=== PATIENT | male | born 1975 | race Caucasian/White ===

== ENCOUNTER 2017-09-23 12:14 | Inpatient (IN) | payer MEDICAID, OTHER ==
[~2017-09-23] VITALS: Ht 190.5 cm; Wt 99.8 kg
[2017-10-07] MEDS ORDERED: ULTRAM50 MG PO (05:54)
[2017-10-07] MEDS ORDERED: AMITRIPTYLINE H25 MG PO (05:54)
[2017-10-07] MEDS ORDERED: TRAZODONE HCL50 MG PO (05:55)
[2017-10-07] MEDS ORDERED: NAPROXEN500 MG PO (05:55)
--- NOTE | 2017-10-07 07:02 | NUR ---
THIS RN TO BEDSIDE TO START TRANSEXAMIC ACID PER PT'S RN, BEVERLEY. TRANSEXAMIC ACID STARTED. INFUSING OVER 15 MINUTES. PT EXPRESSES ANXIETY OVER O2 MASK. PT WEANED TO ROOM AIR. O2 SATURATION MAINTAINS ABOVE 96% ON ROOM AIR. OFFICERS AT BEDISIDE. BED RAILS UP.
--- NOTE | 2017-10-07 09:50 | NUR ---
[facility] ORAL AIRWAY IN PLACE. OXYGEN AT 10L VIA O2 MASK WITH SATS 100%. 0944 ORAL AIRWAY REMOVED. PT REMOVED OXYGEN MASK AND WON'T LEAVE ON. O2 AT 6L WITH BB IN PLACE. TRANSPORT GUARDS AT BEDSIDE.
--- NOTE | 2017-10-07 10:42 | NUR ---
PT TO FLOOR VIA STRETCHER WITH KAY ROMANO. PT ASLEEP BUT WAKES TO NAME. STATES HE IS NOT FEELING WELL, NAUSEOUS. ATTACHED TO CONTINUOUS PULSE OX WITH SATS IN HIGH NINETIES.
--- NOTE | 2017-10-07 11:28 | NUR ---
VITALS AND MEDICATIONS DUE. THIS RN TO BEDSIDE. PT RESTING WITH EYES CLOSED, RR = 17 BPM. PT AROUSES TO VOICE AND THEN DRIFTS BACK TO SLEEP. VITALS TAKEN. MEDICATIONS GIVEN ORDERED (SEE MAR). ICE CHIPS PROVIDED. BED RAILS UP. CALL LIGHT WITHIN REACH. OFFICERS AT BEDSIDE.
--- NOTE | 2017-10-07 12:50 | NUR ---
VITALS DUE. THIS RN TO BEDSIDE. PT REQUESTS TO USE URINAL. PT ASSISTED UP TO SIDE OF BED, STANDING AT EDGE OF BED TO USE URINAL. ABLE TO VOID 500ML WITHOUT ISSUE. PT BACK TO BED. SCD'S AND PULSE OX ON. VITALS TAKEN. PT TOLERATING SIPS OF WATER. PT REQUESTS PUDDING. PROVIDED REQUESTED. NEW ICE TO ICE BAG. BED RAILS UP. CALL LIGHT WITHIN REACH. OFFICERS AT BEDSIDE.
--- NOTE | 2017-10-07 14:12 | NUR ---
medication due. this rn to bedside. pt reports 2/10 pain that is tolerable and denies nasuea. pt reports "feeling better" after his soup. medication given as ordered. bed rails up. call light with in reach. officers at bedside.
--- NOTE | 2017-10-07 15:13 | NUR ---
ADMINISTERED AB AND GAVE PT A GRANOLA BAR. PT STATES HE IS HAVING LITTLE PAIN AND IS STILL FAIRLY NUMB. DENIES NAUSEA AND IS QUITE HUNGRY DESPITE SEVERAL SNACKS.
--- NOTE | 2017-10-07 17:30 | NUR ---
AFTERNOON ASSESSMENT AND MEDICATIONS DUE. THIS RN TO BEDSIDE. ASSESSMENT DONE. EDUCATION DONE R/T BLOCK RESOLVEMENT. PT REPORTS 4/10 TOLERABLE PAIN. SEE MAR FOR MEDICATION GIVEN. PAIN MANAGMENT PLAN MADE WITH PT. PT AGREEABLE TO PLAN AND VERBALIZES UNDERSTANDING. PT TOELRATED DINNER W/O NAUSEA. GOOD INTAKE OF FLUIDS. PIV SALINE LOCKED PER ORDER. CALL LIGHT WITHIN REACH. OFFICERS AT BEDSIDE. BED RAILS UP.
--- NOTE | 2017-10-07 17:39 | NUR ---
MED REC COMPLETE
--- NOTE | 2017-10-07 18:06 | NUR ---
PT HERE FOR RIGHT TOTAL SHOULDER. DIET ADVANCED. MINIMAL PAIN AND NAUSEA. SCHEDULED PAIN MEDICATIONS GIVEN. VICODEN ORDERED FOR PRN PAIN MEDICATION IF NEEDED. MD ADVISES RN'S TO GIVE ZOFRAN WITH VIODEN PT HAS HX OF N/V WITH PAIN MEDICATIONS. NO VICODEN GIVEN THIS SHIFT. PT HAS BLOCK IN SHOULDER. HAND/ARM REMAIN NUMB. SLING AND ICE IN PLACE. PIV SALINE LOCKED. DRESSING CDI THIS SHIFT. OFFICERS AT BEDSIDE.
--- NOTE | 2017-10-07 18:57 | NUR ---
MEDICATION DUE. THIS RN TO BEDSIDE. PT REPORTS 6/10 PAIN THAT "IS A LOT WORSE." PT REQUESTS PAIN MEDICATION AT THIS TIME. ZOFRAN GIVEN IN ADVACE PER MD RECCOMENDATION. MEDICATION GIVEN (SEE MAR). PT RESTING IN BED. NO ADDITIONAL REQUESTS OR COMPLAINTS. OFFICERS AT BEDSIDE. SLING AND ICE IN PLACE. BED RAILS UP.
--- NOTE | 2017-10-07 19:15 | NUR ---
RECEIVED REPORT FROM KAY RICKS. PT IN BED, ICE TO LEFT SHOULDER, SLING IN PLACE, PULSE OX READING SATS AT 96, HR @ 78. 2 GUARDS @ BEDSIDE.
--- NOTE | 2017-10-07 23:21 | NUR ---
PT COMPLAINED OF 7/10 PAIN IN SHOULDER, BURNING SENSATION. MED WITH PRN PAIN MED, WELL ZOFRAN TO PREVENT NAUSEA. PT HAS ATE 2 GRANOLA BARS DRANK SPRITE. HAS KEPT THE SLING IN PLACE, SCD'S IN PLACE. GUARDS AT BEDSIDE.
--- NOTE | 2017-10-08 02:01 | NUR ---
PT AWAKE VISITING WITH THE CORRECTIONAL OFFICERS. STATES HIS ARM IS COMING MORE AWAKE, HE MOVES HIS LOWER ARM. SLING IN PLACE, FRESH ICE ON SHOULDER. SCD'S IN PLACE. PT HAS BEEN GETTING UP AND DOWN WITH OFFICERS TO USE THE URINAL. VOIDING QS. NO NAUSEA, ALTHOUGH HE STATED THAT HIS STOMACH "FEELS WEIRD" WITH PAIN MED, REQUESTED A GRANOLA BAR, GIVEN. SATS IN THE HIGH 90'S ON RA. ADEQUATE CMS, RT HAND. CUFFS ON HANDS, AND ANKLES. HEEL PROTECTORS IN PLACE. SR UP X 4, CALL LIGHT WITHIN REACH.
--- NOTE | 2017-10-08 04:00 | NUR ---
PT CALLED AT 0330, REQUESTED A PAIN MED. STATES HIS ARMPIT, SHOULDER HAS INCREASED IN PAIN. CMS ADEQUATE TO HAND/ARM, DRESSING RIGHT SHOULDER CDI, WARM, NO CHANGE NOTED THIS SHIFT. ZOFRAN GIVEN IV PRIOR TO THE PAIN MEDICATION PT STATES THAT PAIN MEDS BOTHER HIM. REQUESTED A SPRITE AND SANDWICH OR FOOD HE IS HUNGRY. HAS ASKED SEVERAL TIMES WHAT TIME HE CAN GET BREAKFAST. PT HAS BEEN POLITE AND APROPRIATE THIS SHIFT, THANKS STAFF. 2 CORRECTIONAL OFFICERS AT BEDSIDE. CALL LIGHT WITHIN REACH. SATS IN HIGH 90'S, RESP UNLABORED. PT STATES HE DOZED OFF BEFORE 0200 SOME TIME, BUT HASN'T BEEN ASLEEP SINCE. BEEN "TALKING" WITH GUARDS.
--- NOTE | 2017-10-08 06:31 | NUR ---
ALERT AND ORIENTATED, PLEASANT PT FROM [employer], W 2 CORRECTIONAL OFFICERS AT BEDSIDE. PT HAD A RIGHT TOTAL SHOULDER, HAS SLING IN PLACE, DID NOT NEED REMINDERS TO KEEP ON, MEPLIX CDI, BLOCK HAS WORN OFF, ABLE TO FEEL PAIN, RECEIVED PRN NORCO W/ZOFRAN. REGULAR DIET, EATING WELL. GUARDS ASSIST PT TO USE THE URINAL AT BEDSIDE, VOIDING QS. VS WNL, ON ROOM AIR, SATS IN THE 90'S. PT HAS NOT SLEPT MUCH TONIGHT, HOB ELEVATED 30 DEGREES, HAS SCD'S IN PLACE, HEEL PROTECTORS WELL. IS SL, FLUSHES WELL.
--- NOTE | 2017-10-08 07:44 | NUR ---
PATIENT AWAKE LYING IN BED WITH 2 GUARDS AT BEDSIDE. PATIENT REQUESTED PAIN MEDICATION FOR RIGHT SHOULDER. ZOFRAN GIVEN AT 0740 PRIOR TO PAIN MEDICATION ADMINISTRATION. REPORTS 8/10 PAIN DEEP IN RIGHT SHOULDER. RIGHT ARM IN SLING. BREAKFAST DELIVERED TO ROOM. EATING NOW.
--- NOTE | 2017-10-08 11:11 | OR ---
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 PROCEDURE: Total shoulder arthroplasty, left. ANESTHESIA: General. SPECIMENS AND COMPLICATIONS: There were no specimens or complications. BLOOD LOSS: About 200 mL. IMPLANTS: Size 12 stem, a size 12 proximal body, a 52 mm glenoid all poly, and a 56 mm eccentric humeral head rotated posteriorly. WHAT WAS DONE: The patient was taken to the operating room. After anesthesia was induced and airway secured, the patient was placed in a modified beach chair position, and prepped and draped in the routine sterile fashion. A deltopectoral incision was outlined. Skin was divided sharply. Subcutaneous tissue was bluntly spread. The deltopectoral interval was identified and gently opened with a tip of a curved hemostats taking the vein laterally with the deltoid. The clavipectoral fascia along the lateral aspect of the conjoined tendon was then divided and the subscapularis was identified. The biceps tendon was identified by palpation. The bicipital groove was then opened. The biceps tendon was grabbed. A couple of stay sutures were placed in the leading end for later tenodesis and it was transected. We then peeled the subscapularis off the anterior aspect of the humerus. Some stay sutures were placed in the leading edge and it was allowed to retract. We then continued the dissection inferiorly keeping it directly on the bone using a combination of blunt and electrocautery dissection. We were able to Electronically Signed By: ANGEL MARTINEZ MD 10/08/17 1111 PATIENT NAME: TERRI LEMONS OPERATIVE REPORT DATE OF : 73 REPORT #: [id number] PHYSICIAN: ANGEL MARTINEZ MD PCP: TORY BARRAGAN MD REPORT IS CONFIDENTIAL AND NOT TO BE RELEASED WITHOUT AUTHORIZATION [facility] [address], [place] [address] Signed externally rotate the arm almost to 90 degrees, at which point, the humeral head appeared in the wound. After protracting the rotator cuff with modified Crego retractors, the head was prepared using a standard reamers with a fairly snug fit of 12. We therefore assembled the resection jig and I resected the humeral head fragment. After it was delivered out of the wound, I used a rongeur to remove peripheral osteophytes. We then were able to place the rasp/humeral trial in place and it gently impacted it in 20 degrees of retroversion. Once we were happy with the alignment, position, and an 18 x 56 mm head was placed on the Bui taper and the shoulder was reduced. This gave us good alignment, good position, and really excellent stability. We re-dislocated the shoulder and removed the trials. A humeral head protector was placed on the proximal humerus and we continued dissecting the capsule off the anterior aspect of the humerus. We then placed retractors posteriorly and anteriorly, removed the remainder of the labrum and transected the biceps insertion at the apex of the glenoid. We then had excellent glenoid visualization. We were able to place the guide pin in the central location for a 52 mm glenoid and followed it with a standard "Parish" reamer followed by the standard bone reamer followed by the central PEG drill. We then drilled the auxiliary fixation points. We then harvested some of the bone graft we had taken from the drill fragments and from the humeral head and packed it around the central peg of the glenoid. The glenoid peg was then gently impacted and gave us remarkably secure fit. The shoulder was then gently irrigated. We then brought the humerus back forward, replaced the trial with the eccentric 18 head and we were very happy with the alignment, position, and stability as well as the range of motion. We therefore removed the trials, impacted the real humeral stem, and then placed eccentric 56 mm head rotated posteriorly on the Bui taper. Again, we had good alignment, good position, and a stable fixation. Just before seeding the humeral component, a number of sutures were placed through the fins. These were then brought out through the bone and used to reattach the subscapularis. The rotator interval was closed with FiberWire suture. We then tenodesed the biceps over the packed tendon and seemed to have a very sturdy construct. The wound was again copiously irrigated and routine wound closure was accomplished. Sterile dressings were applied. The patient was placed in a sling, awakened, and taken to the recovery room where he arrived in stable condition. Counts were correct and antibiotic protocols were followed. MD MICHELLE Richey/TAYLORL /[id number] Electronically Signed By: ANGEL MARTINEZ MD 10/08/17 1111 PATIENT NAME: TERRI LEMONS JALEN OPERATIVE REPORT DATE OF : 73 REPORT #: [id number] PHYSICIAN: ANGEL MARTINEZ MD PCP: TORY BARRAGAN MD REPORT IS CONFIDENTIAL AND NOT TO BE RELEASED WITHOUT AUTHORIZATION [facility] [address] [facility] [place], [place] [address] Signed Copies: ~ Electronically Signed By: ANGEL MARTINEZ MD 10/08/17 1111 PATIENT NAME: TERRI LEMONS OPERATIVE REPORT DATE OF : 73 REPORT #: [id number] PHYSICIAN: ANGEL MARTINEZ MD PCP: TORY BARRAGAN MD REPORT IS CONFIDENTIAL AND NOT TO BE RELEASED WITHOUT AUTHORIZATION
[2017-10-08] MEDS ORDERED: NORCO 10-325 T1 EACH PO (11:44)
[2017-10-08] MEDS ORDERED: TRAMADOL HCL50 MG PO (11:45)
[2017-10-08] MEDS ORDERED: ZOFRAN ODT4 MG SL (11:46)
--- NOTE | 2017-10-08 13:22 | NUR ---
PT UP WALKING HALLS WITH STAFF AND KELLY. OFFICIERS BY HIS SIDE. PT WAS ALERT, ORIENTED AND PLEASANT. ENCOURAGED HIM TO CONTINUE TO WORK HARD, SAID HE WOULD. EXTENDED A BLESSING WILL FOLLOW NEEDED
== END 2017-10-08 12:20 | disposition home or self-care (01) | DRG 483 ==
LOC: MS 10-07 05:45 → DSVR 10-07 05:45 → MS 10-07 06:45
PROVIDERS: ADMIT Orthopaedic Surgery
PROC: 3E0T3BZ Introduction of Anesthetic Agent into Peripheral Nerves and Plexi, Percutaneous Approach (ICD-10-PCS; 2017-10-07)
PROC: 0RRK0JZ Replacement of Left Shoulder Joint with Synthetic Substitute, Open Approach (ICD-10-PCS; principal; 2017-10-07 06:45)
DX: M19.012 Primary osteoarthritis, left shoulder (principal); G89.18 Other acute postprocedural pain; Z87.891 Personal history of nicotine dependence
CPT/HCPCS: 01638; 36415; 64415; 73030; 76942; 80048; 85025; 97110; 97161; C1776; G8978; G8979; G8980; J0330; J0690; J0735; J1100; J1885; J2250; J2405; J2550; J2704; J2765; J3010; J7120